=== PATIENT | male | born 1975 | race Caucasian/White ===

== ENCOUNTER 2024-07-04 16:12 | Outpatient (OUT) | payer BC, SELFPAY ==
[2024-07-04 18:27] LABS: Prostate Specific Antigen Dx 0.82 ng/mL (<=4.00)
== END 2024-07-04 16:13 | disposition home or self-care (01) ==
PROVIDERS: PCP Family Medicine; Visit Provider Urology
DX: Z12.5 Encounter for screening for malignant neoplasm of prostate (principal)
CPT/HCPCS: 36415; 84153

== ENCOUNTER 2024-08-17 20:33 | Emergency (ER) | payer BC, SELFPAY ==
[2024-08-17 20:42] VITALS: BP 184/113; PULSE 87; TEMP 36.6; O2SAT 97; BMI 27.4
--- OUTSIDE RECORDS SUMMARY | 2024-08-17 20:50 | XMS_ITS | CCD ---
Author Organization [facility] Care Team Providers Care Supervisor Pyrotechnic Loading Name Role Phone CLIFFORD CAMARGO Attending Unavailable CLIFFORD CAMARGO Consulting Unavailable CLIFFORD CAMARGO Admitting Unavailable DR COLLETTE SEE Primary Care Unavailable John Gonzalez Consulting Unavailable HARESH, DR LEMA Attending Unavailable HARESH, DR LEMA Consulting Unavailable HARESH, DR LEMA Admitting Unavailable DR COLLETTE SEE Primary Care Unavailable Collette See Unavailable COLLETTE SEE Primary Care Physician Haroon CONNORS Attending Unavailable Allergies Allergy Classification Reported Allergen(s) Allergy Type Date of Onset Reaction(s) Facility (1 source) No Known Medication Allergies; Translations: [No Known Medication Allergies] Propensity to adverse reactions (disorder) [facility] Repository Medications Current Medications Medication Drug Class(es) Dates Sig (Normalized) Sig (Original) Azithromycin (1 source) Macrolide Antimicrobial Start: 07-08-20 Azithromycin Active 0 PO .COMPLEX July 08, 2024 12:00am For 250 mg dose pack: take 500 mg today (day 1), then 250 mg for 4 days (days 2-5) PO dextromethorphan hydrobromide 15 mg / guaiFENesin 400 mg / pseudoephedrine hydrochloride 60 mg oral tablet (1 source) alpha-Adrenergic Agonist, Uncompetitive Y-zmsxtl-P-aspartate Receptor Antagonist, Sigma-1 Agonist Start: 07-08-20 take 4 tablets by mouth every twenty-four hours Fjfhxsmbebtgyem-Mj-Wx aifenesin (Capmist Dm) 60-15-400 mg tablet Active 1 TAB PO EVERY 4-6 HOURS July 08, 2024 12:00am do not exceed 4 doses per 24 hrs methylPREDNISolone 4 mg oral tablet (1 source) Corticosteroid Start: 07-08-20 take 1 tablet by mouth once Methylprednisolone (Medrol (Brian)) 4 mg tablets,dose pack Active 0 PO per package directions July 08, 2024 12:00am PO PER PKG DIR for 6 days sildenafil 50 mg oral tablet (2 sources) Phosphodiesterase 5 Inhibitor Start: 07-08-20 take 1 tablet by mouth once daily as needed Sildenafil Active 1 TAB PO Daily July 08, 2024 12:00am FreeTextSi tablet as needed Orally Once a day; Note: Source Status: Taking; Provider: Jacqueline Feliz ( ) take 1 tablet by melo th every twenty-four hours Sildenafil Citrate 50 MG 1 tablet as needed Orally Once a day Active tadalafil 20 mg oral tablet (5 sources) Phosphodiesterase 5 Inhibitor Start: 06-21-2023 tadalafil 20 mg Tab 20 mg = 1 tab(s), Oral, As Directed, PRN for erectile dysfunction, Take 30-60 minutes prior to sexual activity. Do not exceed 20mg within 24 hours., # 30 tab(s), Refills(s) 1, Pharmacy: [id number], 168, cm, 06/21/23 16:13:00 EDT, Height/Length Dosing, 78, kg, 06/21/23 16:13:00 EDT, Weight Dosing Start Date: 06/21/23 Status: Ordered Start: 03-22-2023 tadalafil 10 m g Tab Refills(s) 0 Start Date: 03/22/23 Status: Ordered Start: 01-07-2023 Cialis 10 MG 1 tablet as needed Orally prn for 30 days Jan, Active Completed/Discontinued Medications Medication Drug Class(es) Dates Sig (Normalized) Sig (Original) amoxicillin 875 mg / clavulanate 125 mg oral tablet (1 source) Penicillin-class Antibacterial Start: 11-19-2022 take 1 tablet by mouth every twelve hours Amoxicillin-Pot Clavulanate 875-125 MG 1 tablet Orally every 12 hrs for 10 day(s) Nov, Not-Taking Problems Active Problems Problem Classification Problem Date Documented Da te Episodic/Chronic Chronic obstructive pulmonary disease and bronchiectasis (2 sources) Bronchitis; Translations: [Bronchitis, not specified as acute or chronic] 07-08-2024 Episodic Other endocrine disorders (2 sources) Testicular hypofunction; Translations: [Testicular hypofunction] Onset: 03-22-2023 Chronic Other endocrine disorders (4 sources) Male hypogonadism 03-22-2023 Chronic Other lower respiratory disease (3 sources) Shortness of breath; Translations: [SHORTNESS OF BREATH] Onset: 07-06-2021 Episodic Other male genital disorders (5 sources) Male erectile dysfunction, unspecified; Translations: [Erectile dysfunction] Onset: 03-22-2023 Chronic Other male genital disorders (4 sources) Impotence 03-22-2023 Chronic Other screening for suspected conditions (not mental disorders or infectious disease) (3 sources) Encounter for screening for malignant neoplasm of prostate; Translations: [Screening for malignant neoplasm done] Onset: 03-22-2023 Episodic Pneumonia (except that caused by tuberculosis or sexually transmitted disease) (1 source) Pneumonia (except that caused by tuberculosis or sexually transmitted disease); Translations: [PNEUMONIA D/T CORONAVIRUS DIS 2019] Onset: 07-15-2021 Unclassified (2 sources) CONTACT W/AND (SUSP) EXPOS COVID-19; Translations: [CONTACT W/AND (SUSP) EXPOS COVID-19] Onset: 07-09-2021 Unclassified (4 sources) Patient encounter status 03-22-2023 Viral infection (1 source) COVID-19; Translations: [COVID-19] Onset: 07-15-2021 Past or Other Problems Problem Classification Problem Date Documented Da te Episodic/Chronic Unclassified (1 source) CONTACT W/AND (SUSP) EXPOS COVID-19; Translations: [CONTACT W/AND (SUSP) EXPOS COVID-19] Onset: 07-03-2021 Results Test Name Value Interpretation Reference Range Facility Ambulatory Visit Summaryon 1 Ambulatory Visit Summary Ambulatory Visit Summary CUATE SOLER :1975 Visit Date:07/10/2024 Ambulatory Visit Instructions Your Diagnosis Screening PSA (prostate specific antigen) ED (erectile dysfunction) Your Care Team Attending Physician - MORENITA RIZO, Haroon Ryan Primary Care Physician - ESA RIZO, COLLETTE This Is Your Medications List tadalafil (tadalafil 20 mg Tab) Procedures Performed Hip bone, Knee, Leg. Discharge Vitals Heart Rate (Peripheral) 84 Blood Pressure 166/84 Height 168 cm Height 66 in Weight 78 kg Weight 171.6 lb BMI 27.64 What to do next You Need to Schedule the Following Appointments Follow Up with MORENITA RIZO, BYRON Ji When: Comments: 2 yrs w/ PSA Where: [facility] [address], [place] [address] [phone] Medications What How Much When Instructions Unchanged tadalafil (tadalafil 20 mg Tab) 1 Tablets By Mouth As Directed as needed for for erectile dysfunction Take 30-60 minutes prior to sexual activity. Do not exceed 20mg within 24 hours. Allergies No Known Medication Allergies Problems Ongoing - Any problem that you are currently receiving treatment for. ED (erectile dysfunction) Hypogonadism male Screening PSA (prostate specific antigen) Patient Survey You may receive a survey via text or e-mail asking about your office visit. Please share your experience with us by completing your survey. We appreciate your feedback and thank you for choosing us for your care. Education Materials Prostate Cancer Screening Prostate cancer screening is testing that is done to check for the presence of prostate cancer in men. The prostate gland is a walnut-sized gland that is located below the bladder and in front of the rectum in males. The function of the prostate is to add fluid to semen during ejaculation. Prostate cancer is one of the most common types of cancer in men. Who should have prostate cancer screening? Screening recommendations vary based on age and other risk factors, as well as between the professional organizations who make the recommendations. In general, screening is recommended if: ? You are age 50 to 70 and have an average risk for prostate cancer. You should talk with your health care provider about your need for screening and how often screening should be done. Because most prostate cancers are slow growing and will not cause , screening in this age group is generally reserved for men who have a 10- to 15-year life expectancy. ? You are younger than age 50, and you have these risk factors: ? Having a father, brother, or uncle who has been diagnosed with prostate cancer. The risk is higher if your family member's cancer occurred at an early age or if you have multiple family members with prostate cancer at an early age. ? Being a male who is Black or is of [place] or sub-Saharan descent. In general, screening is not recommended if: ? You are younger than age 40. ? You are between the ages of 40 and 49 and you have no risk factors. ? You are 70 years of age or older. At this age, the risks that screening can cause are greater than the benefits that it may provide. If you are at high risk for prostate cancer, your health care provider may recommend that you have screenings more often or that you start screening at a younger age. How is screening for prostate cancer done? The recommended prostate cancer screening test is a blood test called the prostate-specific antigen (PSA) test. PSA is a protein that is made in the prostate. As you age, your prostate naturally produces more PSA. Abnormally high PSA levels may be caused by: ? Prostate cancer. ? An enlarged prostate that is not caused by cancer (benign prostatic hyperplasia, or BPH). This condition is very common in older men. ? A prostate gland infection (prostatitis) or urinary tract infection. ? Certain medicines such as male hormones (like testosterone) or other medicines that raise testosterone levels. A rectal exam may be done as part of prostate cancer screening to help provide information about the size of your prostate gland. When a rectal exam is performed, it should be done after the PSA level is drawn to avoid any effect on the results. Depending on the PSA results, you may need more tests, such as: ? A physical exam to check the size of your prostate gland, if not done as part of screening. ? Blood and imaging tests. ? A procedure to remove tissue samples from your prostate gland for testing (biopsy). This is the only way to know for certain if you have prostate cancer. What are the benefits of prostate cancer screening? ? Screening can help to identify cancer at an early stage, before symptoms start and when the cancer can be treated more easily. ? There is a small chance that screening may lower your risk of dying from prostate cancer. The chance is small navin (more content not included)... Normal [facility] Reminderson 07-10-2024 Reminders Reminders - From: Rena Sosa To: [facility] - Administrative; Sent: 07/10/2024 17:08:00 EDT Show up: 12/02/2025 17:07:00 EST Subject: 2 yr f/u Due Date/Time: 07/04/2026 17:07:00 EDT Reminder/Recall Patient needs scheduled with PRW for a 2 yr f/u with PSA Normal [facility] Urology Office/Clinic Noteon 07-10-2024 Urology Office/Clinic Note Urology Office/Clinic Note Chief Complaint 1 yr HPI Staff 49 yr old male here for 1 yr f/u w/ PSA Previous DX:ED & Hypogonadism pt is on abx for a cold/ upper resp infection, will be done with those in a few days PSA: 07/04/24- 0.82 Dysuria: no Incomplete bladder emptying: no Hematuria: no, trace IO today Frequency: q3-4 hrs Urgency: no Nocturia: not often Stream: normal Leaking: no Post void dripping: no Wearing pads/ Depends: no Urge incontinence: no Stress incontinence: no Incontinence without Sensory Awareness: no Abdominal pain: no Flank pain: no Sexual complaints: no History of Present Illness Tests reviewed: reviewed UA, PSA I have reviewed the previous health record information and history for this patient from Dr. Connors. I have reviewed and verified the staff HPI to be accurate for this encounter. Review of Systems PHQ Score Initial Depression Screen Score: 0 SCORE ROS - Provider Constitutional: denies weight loss, denies hot flashes. Eyes: denies eye problems. Gastrointestinal: denies nausea, denies vomiting. Cardiovascular: denies chest pain or angina. Integumentary: no dryness Musculoskeletal: denies musculoskeletal symptoms. ENMT: denies otolaryngeal symptoms. Respiratory: no shortness of breath. Heme/Lymph: denies easy bleeding tendency, denies easy bruising tendency. Psychiatric: no confusion, no anxiety. Genitourinary: See HPI. Physical Exam Vitals & Measurements HR: 84(Peripheral) BP: 166/84 HT: 66 in HT: 168 cm WT: 78 kg WT: 171.6 lb BMI: 27.64 General Appearance: alert, no distress, well nourished, well developed male. Prostate: normal prostate, estimated weight 30 gms, no hard nodule observed. Assessment/Plan 1. Screening PSA (prostate specific antigen) (Z12.5: Encounter for screening for malignant neoplasm of prostate) PSA 03/22/23 - 0.7 07/04/24 - 0.82 No family hx of prostate ca. МАРИЯ: ~30g, no nodules No issues with urination. UA today shows trace-intact blood. Denies gross hematuria or pain/burning with urination. PSA remains low and stable. Given low level and negative МАРИЯ, can extend PSA monitoring to 2 yrs. -F/u in 2 yrs w/ PSA 2. ED (erectile dysfunction) (N52.9: Male erectile dysfunction, unspecified) Failed Sildenafil 50 mg & 100 mg due to severe headaches. T Level 03/22/23 - 559 Taking Tadalafil 20mg prn. No concerns. Follow-up With When Contact Information MORENITA RIZO, Haroon Ryan, URL [facility] [address], [place] [address] [phone] Additional Instructions: 2 yrs w/ PSA Patient Education Prostate Cancer Screening I, Chelsea Becker, personally scribed for Dr. Connors on 07/10/2024 16:51:11. . Documentation recorded by the scribe, Chelsea Becker, accurately reflects the services(s) I performed and decisions made by me. Authenticated by Dr. Connors on 07/10/2024 16:53:32. Problem List/Past Medical History Ongoing ED (erectile dysfunction) Hypogonadism male Screening PSA (prostate specific antigen) Historical No qualifying data Procedure/Surgical History Hip bone, Knee, Leg. Medications tadalafil 20 mg Tab, 20 mg= 1 tab(s), Oral, As Directed, PRN, 1 refills Allergies No Known Medication Allergies Social History Tobacco Never (less than 100 in lifetime) Tobacco Use:. Smokeless tobacco user within last 30 days Smokeless Tobacco Use:. Oral, Household tobacco concerns: No. Yes, 07/10/2024 Family History Family history is negative Lab Results Ambulatory Point of Care Results Bilirubin Urine Dipstick: Negative (07/10/24 15:38:00) Blood Urine Dipstick: Trace-intact (07/10/24 15:38:00) Glucose Urine Dipstick: Negative (07/10/24 15:38:00) Ketones Urine Dipstick: Negative (07/10/24 15:38:00) Leukocytes Urine Dipstick: Negative (07/10/24 15:38:00) Nitrite Urine Dipstick: Negative (07/10/24 15:38:00) Protein Urine Dipstick: Negative (07/10/24 15:38:00) Specific [place] Urine Dipstick: 1.025 (07/10/24 15:38:00) Urine Appearance Urine Dipstick: Clear (07/10/24 15:38:00) Urine Color Urine Dipstick: Yellow (07/10/24 15:38:00) Urobilinogen Urine Dipstick: Normal 0.2-1 EU/dl (07/10/24 15:38:00) pH Urine Dipstick: 5.5 (07/10/24 15:38:00) Normal [facility] Comment on above: Result Comment: Elec tronically Signed By: Haroon CONNORS MD\.br\Date and Time Signed: 07/10/24 16:53 EDT\.br\Electronically Co-Signed By: Chelsea Becker\.br\Date and Time Co-Signed: 07/10/24 16:52 EDT No Panel Informationon 07-04 Prostate Specific Antigen Total 0.82 ng/mL <=4.00 [facility] CBC W MANUAL DIFFon 07-06-20 ATYPICAL LYMPH # Normal [facility] Comment on above: Performed By: #### C BCMAN #### [facility] [address] [place] [address] Dr. Octaviano Hill ATYPICAL LYMPH % Normal [facility] Comment on above: Performed By: #### C BCMAN #### [facility] [address] [place] [address] Dr. Octaviano Hill BAND # 0.0 103/ul Normal 0.0-0.3 [facility] Comment on above: Performed By: #### C BCMAN #### [facility] [address] [place] [address] Dr. Octaviano Hill BAND % 0 % Normal 0-5 [facility] Comment on above: Performed By: #### C BCMAN #### [facility] [address] [address] [address] Octaviano Hill BASOM # 0.00 103/ul Normal 0.00-0.10 [facility] Comment on above: Performed By: #### C BCMAN #### [facility] [address] [place] [address] Dr. Octaviano Hill BASOM % 0.0 % Critically low 0.2-2.0 [facility] Comment on above: Performed By: #### C BCMICHELLE #### [facility] [address] [address] [address] Octaviano Hill BLAST # Normal [facility] Comment on above: Performed By: #### C DANAY #### [facility] [address] [place] [address] Dr. Octaviano Hill BLAST % Normal [facility] Comment on above: Performed By: #### C DANAY #### [facility] [address] [place] [address] Dr. Octaviano Hill CORRECTED WBC Normal 4.0-11.0 [facility] Comment on above: Performed By: #### C DANAY #### [facility] [address] [place] [address] Dr. Octaviano Hill EOS # 0.00 103/ul Normal 0.00-0.70 [facility] Comment on above: Performed By: #### C DANAY #### [facility] [address] [place] [address] Dr. Octaviano Hill EOS% 0.0 % Critically low 0.9-7.0 [facility] Comment on above: Performed By: #### C DANAY #### [facility] [address] [place] [address] Dr. Octaviano Hill HCT 46.1 % Normal 42.0-54.0 [facility] Comment on above: Performed By: #### C DANAY #### [facility] [address] [place] [address] Dr. Octaviano Hill HGB 15.9 g/dl Normal 14.0-18.0 [facility] Comment on above: Performed By: #### C DANAY #### [facility] [address] [place] [address] Dr. Octaviano Hill LYMPHM # 0.64 103/ul Critically low 1.20-3.80 [facility] Comment on above: Performed By: #### C DANAY #### [facility] [address] [place] [address] Dr. Octaviano Hill LYMPHM% 16.0 % Critically low 20.5-60.0 [facility] Comment on above: Performed By: #### C DANAY #### [facility] [address] [place] [address] Dr. Octaviano Hill MCH 31.3 pg Normal 25.9-34.0 [facility] Comment on above: Performed By: #### C DANAY #### [facility] [address] [place] [address] Dr. Octaviano Hill MCHC 34.5 g/dl Normal 29.9-35.2 [facility] Comment on above: Performed By: #### C DANAY #### [facility] [address] [place] [address] Dr. Octaviano Hill MCV 90.7 fL Normal 80.0-94.0 [facility] Comment on above: Performed By: #### C DANAY #### [facility] [address] [place] [address] Dr. Octaviano Hill METAMYELOCYTE # Normal [facility] Comment on above: Performed By: #### C DANAY #### [facility] [address] [place] [address] Dr. Octaviano Hill METAMYELOCYTE % Normal [facility] Comment on above: Performed By: #### C DANAY #### [facility] [address] [place] [address] Dr. Octaviano Hill MONOM# 0.24 103/ul Critically low 0.30-0.80 [facility] Comment on above: Performed By: #### C DANAY #### [facility] [address] [place] [address] Dr. Octaviano Hill MONOM% 6.0 % Normal 1.7-12.0 [facility] Comment on above: Performed By: #### C DANAY #### [facility] [address] [place] [address] Dr. Octaviano Hill MPV 10.1 fL Normal 9.5-13.5 [facility] Comment on above: Performed By: #### C DANAY #### [facility] [address] [place], [place] [id number] Dr. Octaviano Hill MYELOCYTE # Normal [facility] Comment on above: Performed By: #### C DANAY #### [facility] [address] [place] [address] Dr. Octaviano Hill MYELOCYTE % Normal [facility] Comment on above: Performed By: #### C DANAY #### [facility] [address] [place] [address] Dr. Octaviano Hill NRBC Normal [facility] Comment on above: Performed By: #### C DANAY #### [facility] [address] [place] [address] Dr. Octaviano Hill PLT 157 103/ul Normal 150-450 [facility] Comment on above: Performed By: #### C DANAY #### [facility] [address] [place] [address] Dr. Octaviano Hill RBC 5.08 106/ul Normal 4.70-6.10 [facility] Comment on above: Performed By: #### C DANAY #### [facility] [address] [place] [address] Dr. Octaviano Hill RDW 12.1 % Normal 11.0-15.0 [facility] Comment on above: Performed By: #### C DANAY #### [facility] [address] [place] [address] Dr. Octaviano Hill SEG # 3.12 103/ul Normal 1.40-6.50 [facility] Comment on above: Performed By: #### C DANAY #### [facility] [address] [place] [address] Dr. Octaviano Hill SEG % 78.0 % Critically high 43.0-75.0 [facility] Comment on above: Performed By: #### C DANAY #### [facility] [address] [place] [address] Dr. Octaviano Hill WBC 4.0 103/ul Normal 4.0-11.0 [facility] Comment on above: Performed By: #### C DANAY #### [facility] [address] [place] [address] Dr. Octaviano Hill CTA CHEST WO W CONon CTA CHEST WO W CON EXAMINATION: CTA CHEST WO W CON 07/06/2021 HISTORY: SHORTNESS OF BREATH , Covid positive COMPARISON: None. TECHNIQUE: CT angiography of the pulmonary arteries following the administration of intravenous contrast. Coronal and sagittal MIP (maximum intensity projection) images were performed. Dose reduction techniques were achieved by using automated exposure control and/or adjustment of mA and/or kV according to patient size and/or use of iterative reconstruction technique. FINDINGS: No acute pulmonary embolism. Normal heart size. No CT evidence of right heart strain. No pericardial effusion. Nonaneurysmal thoracic aorta. Multifocal scattered bilateral patchy groundglass pulmonary opacities and intralobular septal thickening, greatest in the bilateral mid to lower lungs. Small incidental pulmonary cyst in the right lower lobe. No pleural effusions. The main airways are patent. No pathologically enlarged mediastinal, hilar, or axillary lymph nodes. Visualized thyroid gland is unremarkable. Upper abdomen: Unremarkable. Bones: No acute osseous abnormality. IMPRESSION: 1. No acute pulmonary embolism. 2. Multifocal bilateral patchy groundglass pulmonary opacities and associated septal thickening, most compatible with reported history of Covid 19 pneumonia. Electronically authenticated by: JOHN GONZALEZ Date: 2021-07-06 11:09 Normal [facility] CULTURE BLOODon 07-06-2021 Microscopic examination of blood, culture Culture Observations: NO GROWTH AT 5 DAYS. Normal [facility] Comment on above: Performed By: #### B LDCX2 #### [facility] [address] [address] [address] Octaviano Hill Performed By: #### B LDCX1 #### [facility] [address] [address] [address] Octaviano Hill LACTATE/LACTIC ACIDon 2020 Lactate [Moles/Vol] 1.1 mmol/L Normal 0.7-2.0 [facility] Comment on above: Performed By: #### L ACT #### [facility] [address] [place] [address] Dr. Octaviano Hill PROF 14(COMP METB)on Albumin [Mass/Vol] 3.5 g/dL Normal 3.5-5.0 [facility] Comment on above: Performed By: #### C MP, HSTROPN #### [facility] [address] [address] [address] Octaviano Hill Albumin/Globulin [Mass ratio] 1.0 {ratio} Normal [facility] Comment on above: Performed By: #### C MP, HSTROPN #### [facility] [address] [address] [address] Octaviano Hill ALP [Catalytic activity/Vol] 164 U/L Critically high 38-126 [facility] Comment on above: Performed By: #### C MP, HSTROPN #### [facility] [address] [address] [address] Octaviano Hill ALT [Catalytic activity/Vol] 86 U/L Critically high 21-72 [facility] Comment on above: Performed By: #### C MP, HSTROPN #### [facility] [address] [place] [address] Dr. Octaviano Hill Anion gap [Moles/Vol] 9.6 mmol/L Normal [facility] Comment on above: Performed By: #### C MP, HSTROPN #### [facility] [address] [place] [address] Dr. Octaviano Hill AST [Catalytic activity/Vol] 69 U/L Critically high 17-59 [facility] Comment on above: Performed By: #### C MP, HSTROPN #### [facility] [address] [address] [address] Octaviano Hill Bilirubin [Mass/Vol] 1.0 mg/dL Normal 0.2-1.3 [facility] Comment on above: Performed By: #### C MP, HSTROPN #### [facility] [address] [place] [address] Dr. Octaviano Hill Calcium [Mass/Vol] 8.3 mg/dL Critically low 8.4-10.2 Th e [facility] Comment on above: Performed By: #### C MP, HSTROPN #### [facility] [address] [place] [address] Dr. Octaviano Hill Chloride [Moles/Vol] 101 mmol/L Normal 98-107 [facility] Comment on above: Performed By: #### C JANELL, HSTROPN #### [facility] [address] [place] [address] Dr. Octaviano Hill CO2 [Moles/Vol] 29.3 mmol/L Normal 22.0-30.0 [facility] Comment on above: Performed By: #### C JANELL, HSTROPN #### [facility] [address] [place] [address] Dr. Octaviano Hill Creatinine [Mass/Vol] 1.25 mg/dL Normal 0.66-1.25 [facility] Comment on above: Performed By: #### C JANELL, HSTROPN #### [facility] [address] [place] [address] Dr. Octaviano Hill EGFR-AF NORWEGIAN >60 Normal >=60 [facility] Comment on above: Performed By: #### C JANELL, HSTROPN #### [facility] [address] [place] [address] Dr. Octaviano Hill EGFR-NON AF NORWEGIAN >60 Normal >=60 [facility] Comment on above: Performed By: #### C JANELL, HSTROPN #### [facility] [address] [place] [address] Dr. Octaviano Hill Globulin (S) [Mass/Vol] 3.6 g/dL Normal [facility] Comment on above: Performed By: #### C JANELL, HSTROPN #### [facility] [address] [place] [address] Dr. Octaviano Hill Glucose [Mass/Vol] 118 mg/dL Critically high 74-106 [facility] Comment on above: Performed By: #### C JANELL, HSTROPN #### [facility] [address] [place] [address] Dr. Octaviano Hill Potassium [Moles/Vol] 3.9 mmol/L Normal 3.4-5.0 [facility] Comment on above: Performed By: #### C JANELL, HSTROPN #### [facility] [address] [address] [address] Octaviano Hill Protein [Mass/Vol] 7.1 g/dL Normal 6.1-8.2 [facility] Comment on above: Performed By: #### C MP, HSTROPN #### [facility] [address] [place] [address] Dr. Octaviano Hill Sodium [Moles/Vol] 136 mmol/L Critically low 137-145 Th [facility] Comment on above: Performed By: #### C MP, HSTROPN #### [facility] [address] [place] [address] Dr. Octaviano Hill Urea nitrogen [Mass/Vol] 15.0 mg/dL Normal 9.0-20.0 [facility] Comment on above: Performed By: #### C MP, HSTROPN #### [facility] [address] [place] [address] Dr. Octaviano Hill Urea nitrogen/Creatinin e [Mass ratio] 12.0 mg/mg Normal [facility] Comment on above: Performed By: #### C MP, HSTROPN #### [facility] [address] [place] [address] Dr. Octaviano Hill TROPONIN, HIGH SENSITIVITYon 07-06-2021 HSTROP 10.5 pg/mL Normal 4.0-42.2 [facility] Comment on above: Result Comment: CUT- OFF POINTS HAVE BEEN ESTABLISHED BASED ON THE FOURTH UNIVERSAL DEFINITIONS OF MYOCARDIAL INFARCTION. THE UPPER REFERENCE LIMIT (URL) OF TROPONIN, DEFINED THE 99TH PERCENTILE OF cTnI DISTRIBUTION IN A REFERENCE POPULATION, HAS BEEN CONFIRMED THE DECISION THRESHOLD FOR ME DIAGNOSIS. Performed By: #### C MP, HSTROPN #### [facility] [address] [place] [address] Dr. Octaviano Hill Covid-19 PCR (CVDTB)on 06-06 SARS-CoV-2 (COVID-19) RNA MERYL+probe Ql (Unsp spec) Detected Critically abnormal NOT DETECTED [facility] Comment on above: Result Comment: This test is not yet approved or cleared by the [place] FDA. When there are no FDA-approved or cleared tests available, and other criteria are met, FDA can make tests available under an emergency access mechanism called an Emergency Use Authorization (EUA). The EUA for this test is supported by the [place] of Health and Human Service's (HHS's) declaration that circumstances exist to justify the emergency use of in vitro diagnostics for the detection and/or diagnosis of the virus that causes COVID-19. This EUA will remain in effect (meaning this test can be used) for the duration of the COVID-19 declaration justifying emergency of IVDs, unless it is terminated or revoked by FDA (after which the test may no longer be used). Performed By: #### C [facility] #### [facility] [address] [place] [address] Dr. Octaviano Hill Vital Signs Date Time Vital Sign Value Performing Clinician Facility 07-10-2024 15:33-0400 Blood Pressure Location Haroon CONNORS [facility] 07-10-2024 15:33-0400 Diastolic blood pressure 84 mm[Hg] Haroon CONNORS [facility] 07-10-2024 15:33-0400 Heart rate 84 /min Haroon CONNORS [facility] 07-10-2024 15:33-0400 Systolic blood pressure 166 mm[Hg] Haroon CONNORS [facility] 07-08-2024 09:110400 Body height 167.64 cm [facility] 07-08-2024 09:110400 Body mass index (BMI) [Ratio] 27.4 kg/m2 [facility] 07-08-2024 09:110400 Body temperature 98 [degF] [facility] 07-08-2024 09:110400 Body weight 77.11 kg [facility] 07-08-2024 09:110400 Diastolic blood pressure 95 mm[Hg] [facility] 07-08-2024 09:11-0400 Heart rate 83 /min [facility] 07-08-2024 09:11-0400 Respiratory rate 18 /min [facility] 07-08-2024 09:11-0400 SaO2% (BldA) [Mass fraction] 97 % [facility] 07-08-2024 09:11-0400 Systolic blood pressure 142 mm[Hg] [facility] 06-21-2023 16:18-0400 Diastolic blood pressure 108 mm[Hg] Haroon CONNORS [facility] 06-21-2023 16:18-0400 Mean blood pressure 122 mm[Hg] Haroonradha CONNORS [facility] 06-21-2023 16:18-0400 Systolic blood pressure 150 mm[Hg] Haroon CONNORS [facility] 06-21-2023 16:11-0400 Blood Pressure Location Haroonradha CONNORS [facility] 06-21-2023 16:11-0400 Diastolic blood pressure 101 mm[Hg] Haroonradha CONNORS [facility] 06-21-2023 16:11-0400 Heart rate 80 /min Haroonradha CNONORS [facility] 06-21-2023 16:11-0400 Respiratory rate 16 /min Haroonradha CONNORS [facility] 06-21-2023 16:11-0400 Systolic blood pressure 140 mm[Hg] Haroon CONNORS [facility] 03-22-2023 14:37-0400 Blood Pressure Location Haroonradha CONNORS [facility] 03-22-2023 14:37-0400 Diastolic blood pressure 68 mm[Hg] Haroon CONNORS [facility] 03-22-2023 14:37-0400 Heart rate 68 /min Haroon CONNORS [facility] 03-22-2023 14:37-0400 Systolic blood pressure 127 mm[Hg] Haroon CONNORS [facility] 01-07-2023 16:45-0400 Body height 167.64 cm Collette See Other [employer] Other 01-07-2023 16:45-0400 Body mass index (BMI) [Ratio] 29.21 kg/m2 [facility] Other [facility] Other 01-07-2023 16:45-0400 Body weight 82.1 kg Collette See Other [facility] [employer] Other 01-07-2023 16:45-0400 Diastolic blood pressure 80 mm[Hg] Collette See Other [employer] Other 01-07-2023 16:45-0400 SaO2% (BldA) [Mass fraction] 96 % Collette See Other [employer] Other 01-07-2023 16:45-0400 Systolic blood pressure 132 mm[Hg] Collette See Other [employer] Other Encounters Encounter Date Encounter Type Care Provider Facility Start: 07-10-2024 End: 07-10-2024 ambulatory Haroon CONNORS Facility:[facility] Start: 07-10-2024 End: 07-10-2024 Patient encounter procedure Haroon CONNORS [facility] Start: 07-08-2024 End: 07-08-2024 ambulatory [facility] Work Phone: Start: 07-08-2024 End: 07-08-2024 [facility] Work Phone: Start: 07-04-2024 [facility] Work Phone: Start: 06-21-2023 End: 06-21-2023 Patient encounter procedure Haroon CONNORS [facility] Start: 03-22-2023 End: 03-22-2023 Lab Drop off Haroon CONNORS [facility] Start: 03-22-2023 End: 03-22-2023 Patient encounter procedure Haroon CONNORS [facility] Start: 01-18-2023 End: 01-18-2023 Off-Site Haroon CONNORS [facility] Start: 01-07-2023 End: 01-07-2023 ambulatory Collette See Other [facility] Other Start: 01-07-2023 Office outpatient visit 15 minutes Collette See [facility] Start: 07-06-2021 End: 07-06-2021 ambulatory CLIFFORD CAMARGO Facility:[facility] Start: 07-03-2021 End: 07-03-[address] TOREY HUTSON Facility:[facility] Procedures Date Procedure Procedure Detail Performing Clinician Innominate bone stru cture (body structure) Haroon CONNORS Knee region structur e (body structure) Haroon CONNORS Lower limb structure (body structure) Haroon CONNORS Payers Date Payer Category Payer Unknown [id number] 1975 Unknown [id number] 1975 Unknown [id number] 1975 Unknown [id number] 1959 Unknown [id number] Social History Date Type Detail Facility Unknown if ever smoked [employer] Other Sex Assigned At [facility] Start: 03-22-2023 End: 07-10-2024 Tobacco smoking status Never smoked tobacco (finding) [facility] Tobacco smoking status Never [facility] Start: 1975 Sex Assigned At Male F [facility] Functional Status Date Assessment Result Facility 07-10-2024 Functional Status N/A [facility] 06-21-2023 Functional Status N/A [facility] 03-22-2023 Functional Status N/A [facility] Clinical Notes 01-07-2023 to 07-10-2024 Note Date & Type Note Facility 07-10-2024 Hospital Discharge instructions Patient Education 07/10/2024 16:47:22 Prostate Cancer Screening Prostate Cancer Screening Prostate cancer screening is testing that is done to check for the presence of prostate cancer in men. The prostate gland is a walnut-sized gland that is located below the bladder and in front of the rectum in males. The function of the prostate is to add fluid to semen during ejaculation. Prostate cancer is one of the most common types of cancer in men. Who should have prostate cancer screening? Screening recommendations vary based on age and other risk factors, as well as between the professional organizations who make the recommendations. In general, screening is recommended if: You are age 50 to 70 and have an average risk for prostate cancer. You should talk with your health care provider about your need for screening and how often screening should be done. Because most prostate cancers are slow growing and will not cause , screening in this age group is generally reserved for men who have a 10- to 15-year life expectancy. You are younger than age 50, and you have these risk factors: ?Having a father, brother, or uncle who has been diagnosed with prostate cancer. The risk is higher if your family member's cancer occurred at an early age or if you have multiple family members with prostate cancer at an early age. ?Being a male who is Black or is of [place] or sub-Saharan descent. In general, screening is not recommended if: You are younger than age 40. You are between the ages of 40 and 49 and you have no risk factors. You are 70 years of age or older. At this age, the risks that screening can cause are greater than the benefits that it may provide. If you are at high risk for prostate cancer, your health care provider may recommend that you have screenings more often or that you start screening at a younger age. How is screening for prostate cancer done? The recommended prostate cancer screening test is a blood test called the prostate-specific antigen (PSA) test. PSA is a protein that is made in the prostate. As you age, your prostate naturally produces more PSA. Abnormally high PSA levels may be caused by: Prostate cancer. An enlarged prostate that is not caused by cancer (benign prostatic hyperplasia, or BPH). This condition is very common in older men. A prostate gland infection (prostatitis) or urinary tract infection. Certain medicines such as male hormones (like testosterone) or other medicines that raise testosterone levels. A rectal exam may be done as part of prostate cancer screening to help provide information about the size of your prostate gland. When a rectal exam is performed, it should be done after the PSA level is drawn to avoid any effect on the results. Depending on the PSA results, you may need more tests, such as: A physical exam to check the size of your prostate gland, if not done as part of screening. Blood and imaging tests. A procedure to remove tissue samples from your prostate gland for testing (biopsy). This is the only way to know for certain if you have prostate cancer. What are the benefits of prostate cancer screening? Screening can help to identify cancer at an early stage, before symptoms start and when the cancer can be treated more easily. There is a small chance that screening may lower your risk of dying from prostate cancer. The chance is small because prostate cancer is a slow-growing cancer, and most men with prostate cancer from a different cause. What are the risks of prostate cancer screening? The main risk of prostate cancer screening is diagnosing and treating prostate cancer that would never have caused any symptoms or problems. This is called overdiagnosisand overtreatment. PSA screening cannot tell you if your PSA is high due to cancer or a different cause. A prostate biopsy is the only procedure to diagnose prostate cancer. Even the results of a biopsy may not tell you if your cancer needs to be treated. Slow-growing prostate cancer may not need any treatment other than monitoring, so diagnosing and treating it may cause unnecessary stress or other side effects. Questions to ask your health care provider When should I start prostate cancer screening? What is my risk for prostate cancer? How often do I need screening? What type of screening tests do I need? How do I get my test results? What do my results mean? Do I need treatment? Where to find more information The [employer]: www.cancer.org [employer]: www.auanet.org Contact a health care provider if: You have difficulty urinating. You have pain when you urinate or ejaculate. You have blood in your urine or semen. You have pain in your back or in the area of your prostate. Summary Prostate cancer is a common type of cancer in men. The prostate gland is located below the bladder and in front of the rectum. This gland adds fluid to semen during ejaculation. Prostate cancer screening may identify cancer at an early stage, when the cancer can be treated more easily and is less likely to have spread to other areas of the body. The prostate-specific antigen (PSA) test is the recommended screening test for prostate cancer, but it has associated risks. Discuss the risks and benefits of prostate cancer screening with your health care provider. If you are age 70 or older, the risks that screening can cause are greater than the benefits that it may provide. This information is not intended to replace advice given to you by your health care provider. Make sure you discuss any questions you have with your health care provider. Document Revised: 03/16/2022 Document Reviewed: 03/16/2022 [employer] Patient Education 2023 [employer]. Follow Up Care 06/21/2023 17:09:25 With:MORENITA RIZO, Haroon Ryan, URL Address: [facility] [address], [place] [address] [phone] When: Unknown Comments:1 yrs w/ PSA [facility] 07-10-2024 Note Patient Education Oncology Prostate Cancer Screening Prostate cancer screening is testing that is done to check for the presence of prostate cancer in men. The prostate gland is a walnut-sized gland that is located below the bladder and in front of the rectum in males. The function of the prostate is to add fluid to semen during ejaculation. Prostate cancer is one of the most common types of cancer in men. Who should have prostate cancer screening? Screening recommendations vary based on age and other risk factors, as well as between the professional organizations who make the recommendations. In general, screening is recommended if: ? You are age 50 to 70 and have an average risk for prostate cancer. You should talk with your health care provider about your need for screening and how often screening should be done. Because most prostate cancers are slow growing and will not cause , screening in this age group is generally reserved for men who have a 10- to 15-year life expectancy. ? You are younger than age 50, and you have these risk factors: ? Having a father, brother, or uncle who has been diagnosed with prostate cancer. The risk is higher if your family member's cancer occurred at an early age or if you have multiple family members with prostate cancer at an early age. ? Being a male who is Black or is of [place] or sub-Saharan descent. In general, screening is not recommended if: ? You are younger than age 40. ? You are between the ages of 40 and 49 and you have no risk factors. ? You are 70 years of age or older. At this age, the risks that screening can cause are greater than the benefits that it may provide. If you are at high risk for prostate cancer, your health care provider may recommend that you have screenings more often or that you start screening at a younger age. How is screening for prostate cancer done? The recommended prostate cancer screening test is a blood test called the prostate-specific antigen (PSA) test. PSA is a protein that is made in the prostate. As you age, your prostate naturally produces more PSA. Abnormally high PSA levels may be caused by: ? Prostate cancer. ? An enlarged prostate that is not caused by cancer (benign prostatic hyperplasia, or BPH). This condition is very common in older men. ? A prostate gland infection (prostatitis) or urinary tract infection. ? Certain medicines such as male hormones (like testosterone) or other medicines that raise testosterone levels. A rectal exam may be done as part of prostate cancer screening to help provide information about the size of your prostate gland. When a rectal exam is performed, it should be done after the PSA level is drawn to avoid any effect on the results. Depending on the PSA results, you may need more tests, such as: ? A physical exam to check the size of your prostate gland, if not done as part of screening. ? Blood and imaging tests. ? A procedure to remove tissue samples from your prostate gland for testing (biopsy). This is the only way to know for certain if you have prostate cancer. What are the benefits of prostate cancer screening? ? Screening can help to identify cancer at an early stage, before symptoms start and when the cancer can be treated more easily. ? There is a small chance that screening may lower your risk of dying from prostate cancer. The chance is small because prostate cancer is a slow-growing cancer, and most men with prostate cancer from a different cause. What are the risks of prostate cancer screening? The main risk of prostate cancer screening is diagnosing and treating prostate cancer that would never have caused any symptoms or problems. This is called overdiagnosisand overtreatment. PSA screening cannot tell you if your PSA is high due to cancer or a different cause. A prostate biopsy is the only procedure to diagnose prostate cancer. Even the results of a biopsy may not tell you if your cancer needs to be treated. Slow-growing prostate cancer may not need any treatment other than monitoring, so diagnosing and treating it may cause unnecessary stress or other side effects. Questions to ask your health care provider ? When should I start prostate cancer screening? ? What is my risk for prostate cancer? ? How often do I need screening? ? What type of screening tests do I need? ? How do I get my test results? ? What do my results mean? ? Do I need treatment? Where to find more information ? The [employer] Cancer Society: www.cancer.org ? [employer]: www.auanet.org Contact a health care provider if: ? You have difficulty urinating. ? You have pain when you urinate or ejaculate. ? You have blood in your urine or semen. ? You have pain in your back or in the area of your prostate. Summary ? Prostate cancer is a common type of cancer in men. The prostate gland is located below the bladder and in front of the rectum. (more content not included)... [facility] 07-10-2024 Evaluation + Plan note Diagnostic Tests PendingPSA Screen, Total 07/10/24 [facility] 06-21-2023 Hospital Discharge instructions Patient Education 06/21/2023 17:01:15 Erectile Dysfunction Erectile Dysfunction Erectile dysfunction (ED) is the inability to get or keep an erection in order to have sexual intercourse. ED is considered a symptom of an underlying disorder and is not considered a disease. ED may include: Inability to get an erection. Lack of enough hardness of the erection to allow penetration. Loss of erection before sex is finished. What are the causes? This condition may be caused by: Physical causes, such as: ?Artery problems. This may include heart disease, high blood pressure, atherosclerosis, and diabetes. ?Hormonal problems, such as low testosterone. ?Obesity. ?Nerve problems. This may include back or pelvic injuries, multiple sclerosis, Parkinson's disease, spinal cord injury, and stroke. Certain medicines, such as: ?Pain relievers. ?Antidepressants. ?Blood pressure medicines and water pills (diuretics). ?Cancer medicines. ?Antihistamines. ?Muscle relaxants. Lifestyle factors, such as: ?Use of drugs such as marijuana, cocaine, or opioids. ?Excessive use of alcohol. ?Smoking. ?Lack of physical activity or exercise. Psychological causes, such as: ?Anxiety or stress. ?Sadness or depression. ?Exhaustion. ?Fear about sexual performance. ?Guilt. What are the signs or symptoms? Symptoms of this condition include: Inability to get an erection. Lack of enough hardness of the erection to allow penetration. Loss of the erection before sex is finished. Sometimes having normal erections, but with frequent unsatisfactory episodes. Low sexual satisfaction in either partner due to erection problems. A curved penis occurring with erection. The curve may cause pain, or the penis may be too curved to allow for intercourse. Never having nighttime or morning erections. How is this diagnosed? This condition is often diagnosed by: Performing a physical exam to find other diseases or specific problems with the penis. Asking you detailed questions about the problem. Doing tests, such as: ?Blood tests to check for diabetes mellitus or high cholesterol, or to measure hormone levels. ?Other tests to check for underlying health conditions. ?An ultrasound exam to check for scarring. ?A test to check blood flow to the penis. Doing a sleep study at home to measure nighttime erections. How is this treated? This condition may be treated by: Medicines, such as: ?Medicine taken by mouth to help you achieve an erection (oral medicine). ?Hormone replacement therapy to replace low testosterone levels. ?Medicine that is injected into the penis. Your health care provider may instruct you how to give yourself these injections at home. ?Medicine that is delivered with a short applicator tube. The tube is inserted into the opening at the tip of the penis, which is the opening of the urethra. A tiny pellet of medicine is put in the urethra. The pellet dissolves and enhances erectile function. This is also called MUSE (medicated urethral system for erections) therapy. Vacuum pump. This is a pump with a ring on it. The pump and ring are placed on the penis and used to create pressure that helps the penis become erect. Penile implant surgery. In this procedure, you may receive: ?An inflatable implant. This consists of cylinders, a pump, and a reservoir. The cylinders can be inflated with a fluid that helps to create an erection, and they can be deflated after intercourse. ?A semi-rigid implant. This consists of two silicone rubber rods. The rods provide some rigidity. They are also flexible, so the penis can both curve downward in its normal position and become straight for sexual intercourse. Blood vessel surgery to improve blood flow to the penis. During this procedure, a blood vessel from a different part of the body is placed into the penis to allow blood to flow around (bypass) damaged or blocked blood vessels. Lifestyle changes, such as exercising more, losing weight, and quitting smoking. Follow these instructions at home: Medicines Take [id number] and prescription medicines only as told by your health care provider. Do not increase the dosage without first discussing it with your health care provider. If you are using self-injections, do injections as directed by your health care provider. Make sure you avoid any veins that are on the surface of the penis. After giving an injection, apply pressure to the injection site for 5 minutes. Talk to your health care provider about how to prevent headaches while taking ED medicines. These medicines may cause a sudden headache due to the increase in blood flow in your body. General instructions Exercise regularly, as directed by your health care provider. Work with your health care provider to lose weight, if needed. Do not use any products that contain nicotine or tobacco. These products include cigarettes, chewing tobacco, and vaping devices, such as e-cigarettes. If you need help quitting, ask your health care provider. Before using a vacuum pump, read the instructions that come with the pump and discuss any questions with your health care provider. Keep all follow-up visits. This is important. Contact a health care provider if: You feel nauseous. You are vomiting. You get sudden headaches while taking ED medicines. You have any concerns about your sexual health. Get help right away if: You are taking oral or injectable medicines and you have an erection that lasts longer than 4 hours. If your health care provider is unavailable, go to the nearest emergency room for evaluation. An erection that lasts much longer than 4 hours can result in permanent damage to your penis. You have severe pain in your groin or abdomen. You develop redness or severe swelling of your penis. You have redness spreading at your groin or lower abdomen. You are unable to urinate. You experience chest pain or a rapid heartbeat (palpitations) after taking oral medicines. These symptoms may represent a serious problem that is an emergency. Do not wait to see if the symptoms will go away. Get medical help right away. Call your local emergency services (911 in the [place] Do not drive yourself to the hospital. Summary Erectile dysfunction (ED) is the inability to get or keep an erection during sexual intercourse. This condition is diagnosed based on a physical exam, your symptoms, and tests to determine the cause. Treatment varies depending on the cause and may include medicines, hormone therapy, surgery, or a vacuum pump. You may need follow-up visits to make sure that you are using your medicines or devices correctly. Get help right away if you are taking or injecting medicines and you have an erection that lasts longer than 4 hours. This information is not intended to replace advice given to you by your health care provider. Make sure you discuss any questions you have with your health care provider. Document Revised: 12/17/2021 Document Reviewed: 12/17/2021 [employer] Patient Education 2022 [employer]. Follow Up Care 03/22/2023 15:53:38 With:MORENITA RIZO, Haroon Ryan, URL Address: [facility] [address], [place] [address]- [phone] When:Within 1 Year(s) Comments:w/PSA [facility] 03-22-2023 Hospital Discharge instructions Patient Education 03/22/2023 15:40:27 Prostate Cancer Screening Prostate Cancer Screening Prostate cancer screening is testing that is done to check for the presence of prostate cancer in men. The prostate gland is a walnut-sized gland that is located below the bladder and in front of the rectum in males. The function of the prostate is to add fluid to semen during ejaculation. Prostate cancer is one of the most common types of cancer in men. Who should have prostate cancer screening? Screening recommendations vary based on age and other risk factors, as well as between the professional organizations who make the recommendations. In general, screening is recommended if: You are age 50 to 70 and have an average risk for prostate cancer. You should talk with your health care provider about your need for screening and how often screening should be done. Because most prostate cancers are slow growing and will not cause , screening in this age group is generally reserved for men who have a 10- to 15-year life expectancy. You are younger than age 50, and you have these risk factors: ?Having a father, brother, or uncle who has been diagnosed with prostate cancer. The risk is higher if your family member's cancer occurred at an early age or if you have multiple family members with prostate cancer at an early age. ?Being a male who is Black or is of [place] or sub-Saharan descent. In general, screening is not recommended if: You are younger than age 40. You are between the ages of 40 and 49 and you have no risk factors. You are 70 years of age or older. At this age, the risks that screening can cause are greater than the benefits that it may provide. If you are at high risk for prostate cancer, your health care provider may recommend that you have screenings more often or that you start screening at a younger age. How is screening for prostate cancer done? The recommended prostate cancer screening test is a blood test called the prostate-specific antigen (PSA) test. PSA is a protein that is made in the prostate. As you age, your prostate naturally produces more PSA. Abnormally high PSA levels may be caused by: Prostate cancer. An enlarged prostate that is not caused by cancer (benign prostatic hyperplasia, or BPH). This condition is very common in older men. A prostate gland infection (prostatitis) or urinary tract infection. Certain medicines such as male hormones (like testosterone) or other medicines that raise testosterone levels. A rectal exam may be done as part of prostate cancer screening to help provide information about the size of your prostate gland. When a rectal exam is performed, it should be done after the PSA level is drawn to avoid any effect on the results. Depending on the PSA results, you may need more tests, such as: A physical exam to check the size of your prostate gland, if not done as part of screening. Blood and imaging tests. A procedure to remove tissue samples from your prostate gland for testing (biopsy). This is the only way to know for certain if you have prostate cancer. What are the benefits of prostate cancer screening? Screening can help to identify cancer at an early stage, before symptoms start and when the cancer can be treated more easily. There is a small chance that screening may lower your risk of dying from prostate cancer. The chance is small because prostate cancer is a slow-growing cancer, and most men with prostate cancer from a different cause. What are the risks of prostate cancer screening? The main risk of prostate cancer screening is diagnosing and treating prostate cancer that would never have caused any symptoms or problems. This is called overdiagnosisand overtreatment. PSA screening cannot tell you if your PSA is high due to cancer or a different cause. A prostate biopsy is the only procedure to diagnose prostate cancer. Even the results of a biopsy may not tell you if your cancer needs to be treated. Slow-growing prostate cancer may not need any treatment other than monitoring, so diagnosing and treating it may cause unnecessary stress or other side effects. Questions to ask your health care provider When should I start prostate cancer screening? What is my risk for prostate cancer? How often do I need screening? What type of screening tests do I need? How do I get my test results? What do my results mean? Do I need treatment? Where to find more information The [employer]: www.cancer.org [employer]: www.auanet.org Contact a health care provider if: You have difficulty urinating. You have pain when you urinate or ejaculate. You have blood in your urine or semen. You have pain in your back or in the area of your prostate. Summary Prostate cancer is a common type of cancer in men. The prostate gland is located below the bladder and in front of the rectum. This gland adds fluid to semen during ejaculation. Prostate cancer screening may identify cancer at an early stage, when the cancer can be treated more easily and is less likely to have spread to other areas of the body. The prostate-specific antigen (PSA) test is the recommended screening test for prostate cancer, but it has associated risks. Discuss the risks and benefits of prostate cancer screening with your health care provider. If you are age 70 or older, the risks that screening can cause are greater than the benefits that it may provide. This information is not intended to replace advice given to you by your health care provider. Make sure you discuss any questions you have with your health care provider. Document Revised: 03/16/2022 Document Reviewed: 03/16/2022 [employer] Patient Education 2022 [employer]. 03/22/2023 08:48:49 Erectile Dysfunction Erectile Dysfunction Erectile dysfunction (ED) is the inability to get or keep an erection in order to have sexual intercourse. ED is considered a symptom of an underlying disorder and is not considered a disease. ED may include: Inability to get an erection. Lack of enough hardness of the erection to allow penetration. Loss of erection before sex is finished. What are the causes? This condition may be caused by: Physical causes, such as: ?Artery problems. This may include heart disease, high blood pressure, atherosclerosis, and diabetes. ?Hormonal problems, such as low testosterone. ?Obesity. ?Nerve problems. This may include back or pelvic injuries, multiple sclerosis, Parkinson's disease, spinal cord injury, and stroke. Certain medicines, such as: ?Pain relievers. ?Antidepressants. ?Blood pressure medicines and water pills (diuretics). ?Cancer medicines. ?Antihistamines. ?Muscle relaxants. Lifestyle factors, such as: ?Use of drugs such as marijuana, cocaine, or opioids. ?Excessive use of alcohol. ?Smoking. ?Lack of physical activity or exercise. Psychological causes, such as: ?Anxiety or stress. ?Sadness or depression. ?Exhaustion. ?Fear about sexual performance. ?Guilt. What are the signs or symptoms? Symptoms of this condition include: Inability to get an erection. Lack of enough hardness of the erection to allow penetration. Loss of the erection before sex is finished. Sometimes having normal erections, but with frequent unsatisfactory episodes. Low sexual satisfaction in either partner due to erection problems. A curved penis occurring with erection. The curve may cause pain, or the penis may be too curved to allow for intercourse. Never having nighttime or morning erections. How is this diagnosed? This condition is often diagnosed by: Performing a physical exam to find other diseases or specific problems with the penis. Asking you detailed questions about the problem. Doing tests, such as: ?Blood tests to check for diabetes mellitus or high cholesterol, or to measure hormone levels. ?Other tests to check for underlying health conditions. ?An ultrasound exam to check for scarring. ?A test to check blood flow to the penis. Doing a sleep study at home to measure nighttime erections. How is this treated? This condition may be treated by: Medicines, such as: ?Medicine taken by mouth to help you achieve an erection (oral medicine). ?Hormone replacement therapy to replace low testosterone levels. ?Medicine that is injected into the penis. Your health care provider may instruct you how to give yourself these injections at home. ?Medicine that is delivered with a short applicator tube. The tube is inserted into the opening at the tip of the penis, which is the opening of the urethra. A tiny pellet of medicine is put in the urethra. The pellet dissolves and enhances erectile function. This is also called MUSE (medicated urethral system for erections) therapy. Vacuum pump. This is a pump with a ring on it. The pump and ring are placed on the penis and used to create pressure that helps the penis become erect. Penile implant surgery. In this procedure, you may receive: ?An inflatable implant. This consists of cylinders, a pump, and a reservoir. The cylinders can be inflated with a fluid that helps to create an erection, and they can be deflated after intercourse. ?A semi-rigid implant. This consists of two silicone rubber rods. The rods provide some rigidity. They are also flexible, so the penis can both curve downward in its normal position and become straight for sexual intercourse. Blood vessel surgery to improve blood flow to the penis. During this procedure, a blood vessel from a different part of the body is placed into the penis to allow blood to flow around (bypass) damaged or blocked blood vessels. Lifestyle changes, such as exercising more, losing weight, and quitting smoking. Follow these instructions at home: Medicines Take tucn-[id number]-[id number] and prescription medicines only as told by your health care provider. Do not increase the dosage without first discussing it with your health care provider. If you are using self-injections, do injections as directed by your health care provider. Make sure you avoid any veins that are on the surface of the penis. After giving an injection, apply pressure to the injection site for 5 minutes. Talk to your health care provider about how to prevent headaches while taking ED medicines. These medicines may cause a sudden headache due to the increase in blood flow in your body. General instructions Exercise regularly, as directed by your health care provider. Work with your health care provider to lose weight, if needed. Do not use any products that contain nicotine or tobacco. These products include cigarettes, chewing tobacco, and vaping devices, such as e-cigarettes. If you need help quitting, ask your health care provider. Before using a vacuum pump, read the instructions that come with the pump and discuss any questions with your health care provider. Keep all follow-up visits. This is important. Contact a health care provider if: You feel nauseous. You are vomiting. You get sudden headaches while taking ED medicines. You have any concerns about your sexual health. Get help right away if: You are taking oral or injectable medicines and you have an erection that lasts longer than 4 hours. If your health care provider is unavailable, go to the nearest emergency room for evaluation. An erection that lasts much longer than 4 hours can result in permanent damage to your penis. You have severe pain in your groin or abdomen. You develop redness or severe swelling of your penis. You have redness spreading at your groin or lower abdomen. You are unable to urinate. You experience chest pain or a rapid heartbeat (palpitations) after taking oral medicines. These symptoms may represent a serious problem that is an emergency. Do not wait to see if the symptoms will go away. Get medical help right away. Call your local emergency services (911 in the [place] Do not drive yourself to the hospital. Summary Erectile dysfunction (ED) is the inability to get or keep an erection during sexual intercourse. This condition is diagnosed based on a physical exam, your symptoms, and tests to determine the cause. Treatment varies depending on the cause and may include medicines, hormone therapy, surgery, or a vacuum pump. You may need follow-up visits to make sure that you are using your medicines or devices correctly. Get help right away if you are taking or injecting medicines and you have an erection that lasts longer than 4 hours. This information is not intended to replace advice given to you by your health care provider. Make sure you discuss any questions you have with your health care provider. Document Revised: 12/17/2021 Document Reviewed: 12/17/2021 [employer] Patient Education 2022 [employer]. Follow Up Care 01/18/2023 13:13:58 With:Haroon CONNORS MD, URL Address: [facility] [address], [place] [address]- When: Unknown [facility] 01-07-2023 Evaluation note Encounter Date Diagnosis Assessment Notes Jan, Erectile disorder (ICD-10 - N52.9) Discussed changing med. Has history of chronic L hip issue. Discussed possible nerve related issue contributing to the ED. Agrees to Urology consultation. [employer] Other Evaluation + Plan note Future Appointments Appointment Date:03/22/2023 02:00:00 PM Scheduled Provider:Haroon CONNORS MD Location:[facility] Appointment Type:URO New Patient [facility] Evaluation + Plan note Future Appointments Appointment Date:06/21/2023 03:30:00 PM Scheduled Provider:Haroon CONNORS MD Location:[facility] Appointment Type:URO Office Visit [facility] evaluation + Plan note Future Appointments Appointment Date:06/21/2023 03:30:00 PM Scheduled Provider:Haroon CONNORS MD Location:[facility] Appointment Type:URO Office Visit Diagnostic Tests Pending * PSA Total 03/22/23 * [facility]ments Appointment Date:06/26/2024 03:30:00 PM Scheduled Provider:Haroon CONNORS MD Location:[facility] Appointment Type:URO Office Visit Diagnostic Tests Pending * PSA Total 06/21/23 [facility] evaluation note* Diagnosis Onset Date Resolution Status Bronchitis [facility] Work Phone: Hospital course Narrative No data available for this section [facility] Hospital Discharge instructions No data available for this section [facility] Progress note No data available for this section [facility] Summary Purpose Family History Relationship Condition Age at Onset Recorded Date/T german father Hypertension Unknown Heart disease Unknown Advance Directives Advance Directive Response Recorded Date/ Time Advance Directives No July 08, 2024 9:03am Reason for Referral Reason * 01/18 [place] or [place] location - years of ED symptoms, history of L hip issue, questions if nerve related issue. Tried med without acceptable result. thank you Diagnosis 1 Erectile disorder (N 52.9) Referral Organization [facility] Referring Provider First Name Collette Referring Provider Last Name Esa Referring Provider Specialty Family [facility] Referred Organization [facility] Referred Provider Silvestre Garza Referred Address [address] [place],[address] Referred Provider Specialty Urology Referral Priority Routine General Notes Sherley Garcia 11:50:14 AM >received today, waiting for notes to be locked to fax Sherley Garcia 01/12/2023 11:23:18 AM >Mary Jo, can you have Dr. Collette See lock her 01/07 notes, so I can faxed referral. Then send this back to me. Thank You :) Rosamaria Robison 01/12/2023 01:05:08 PM > Notes have been locked. Sherley Garcia 01/12/2023 01:06:03 PM >notes locked and referral faxed Chief Complaint and Reason for Visit Chief Complaint Chest congestion, co ugh Reason for Visit Bronchitis Additional Source Comments (unrecognized sect ion and content) No Status Records FoundNo Status Records Found INFORMATION SOURCE (unrecogn ized section and content) DATE CREATED AUTHOR 07/16/2021 [facility] [place] [facility] DATE CREATED AUTHOR AUTHOR'S ORGANIZ ATION 07/12/2024 [facility] REASON FOR VISIT (unrecogniz ed section and content) Erectile Disfunction Patient Care team informatio n (unrecognized section and content) Team Status: Active Member Role Status Dates Collette See MD Primary Care Provider Active Team Status: Active Member Role Status Dates Collette See MD Primary Care Provider Active Start: July 04, 2024 Haroon Connors MD Attending Provider Active St art: July 04, 2024 Team Status: Inactive Member Role Status Dates Collette See MD Primary Care Provider Active Start: July 08, 2024 End: July 08, 2024 Rachele Vogel APRN Attending Provider Active Start: July 08, 2024 End: July 08, 2024 Personnel Name: COLLETTE SEE MD Address: Address: [address] [place] [address] Goals (unrecognized section and content) Goals may be documented in a n alternate section FOR RECORDS PERTAINING TO PATIENTS WHO ARE OR HAVE BEEN ENROLLED IN A CHEMICAL DEPENDENCY/SUBSTANCEABUSE PROGRAM, SOME INFORMATION MAY BE OMITTED. This clinical summary was aggregated from multiple sources. Caution should be exercised in using it in the provision of clinical care. This summary normalizes information from multiple sources, and as a consequence, information in this document may materially change the coding, format and clinical context of patient data. In addition, data may be omitted in some cases. CLINICAL DECISIONS SHOULD BE BASED ON THE PRIMARY CLINICAL RECORDS. [facility] [employer] [facility]. provides no warranty or guarantee of the accuracy or completeness of information in this document.
--- NOTE | 2024-08-17 21:09 | CT_ITS ---
[address] [address] Patient Name: CUATE SOLER MRN: [id number] date: 1975 Sex: M Assigned Patient Location: ER Current Patient Location: ER Accession/Order Number: [id number] Exam Date: 08/17/2024 21:35 Report Date: 08/17/2024 23:11 At the request of: VIRGINIA CROUCH Procedure: CT abdomen pelvis w con EXAM: CT abdomen pelvis w con HISTORY: poss rectal prolapse COMPARISON: None. TECHNIQUE: Dose reduction techniques were achieved by using automated exposure control and/or adjustment of mA and/or kV according to patient size and/or use of iterative reconstruction technique. CT of the abdomen and pelvis with contrast. FINDINGS: Lung bases are clear. No focal liver lesion. Spleen is normal. Pancreas is normal. Adrenal glands are normal. Cholelithiasis. No gallbladder wall thickening. Nonobstructive stones of the bilateral kidneys. No hydronephrosis. No hydroureter. No ureteral stones. No bladder stones. No focal bladder wall thickening. No colonic dilation. No pericolonic fat stranding. Appendix is normal. There is rectal prolapse. No small bowel dilation. No adjacent mesenteric edema. No inguinal, pelvic or retroperitoneal adenopathy. No acute osseous abnormality. Mild degeneration of the bilateral sacroiliac joints. Dysplastic left hip joint. Severe degeneration of the left hip with full-thickness chondral loss and subchondral sclerosis. Surgical fixation screws of the left proximal femur. Normal alignment of the right hip joint. Mild to moderate disc degeneration at L5-S1. Posterior disc osteophyte complex at L5-S1. No acute osseous abnormality. CT/CT abdomen pelvis w con IMPRESSION: 1. Rectal prolapse. 2. No colonic dilation. No pericolonic fat stranding. No small bowel dilation. 3. Other chronic findings as described. 4. No acute osseous abnormality. Electronically authenticated by: RHEA GALVEZ Date: 08/17/2024 23:11
--- NOTE | 2024-08-17 21:44 | ED_ITS ---
HPI HPI - General Adult General Chief complaint: Urogenital-Male Stated complaint: POSS RECTAL PROLAPSE, HOLDING IT IN Time Seen by Provider: 08/17/24 20:44 Source: patient Mode of arrival: Wheelchair Limitations: no limitations History of Present Illness HPI narrative: 49-year-old male presents to the emergency department for something protruding from his rectum. He states he was constipated and gave himself an enema tonight about 5 PM. It was successful and he had a large amount of stool and feels better in that regard but subsequently he felt something protruding from his rectum. There is been no bleeding. He has had some small external hemorrhoids but never had to have surgery. He has never had any colorectal issues. He does not have chronic constipation. Related Data Allergies Allergy/AdvReac Type Severity Reaction Status Date / Time No Known Drug Allergies Allergy Verified 08/17/24 20:46 Opioid HPI Opioid Management Most Recent Opioid Data: Last Pain Scale 7 08/17/24 21:56 08/17/24 Review of Systems ROS Narrative A ten point review of systems is negative except as noted above. PFSH PFSH Social History Little interest or pleasure in doing things: not at all Feeling down, depressed, or hopeless: not at all Exam Narrative Exam Narrative: Nurses note and vital signs reviewed and patient is not hypoxic. General: The patient appears well and in no apparent distress. Patient is resting comfortably on cart. Skin: Warm, dry, no pallor noted. There is no rash noted. Head: Normocephalic, atraumatic Eye: Normal conjunctiva, no drainage Ears, Nose, Mouth, and Throat: oral mucosa is moist. Nares patent. Cardiovascular: Regular Rate and Rhythm Respiratory: Patient is in no distress, no accessory muscle use, lungs are clear to auscultation, no wheezing, rales or rhonchi Back: non-tender GI: Normal bowel sounds, no tenderness to palpation, no masses appreciated. No rebound, guarding, or rigidity noted. Perianal examination shows tissue protruding externally. There appears to be no concentric rings to suggest pure rectal prolapse. There are 2 parallel linear nonthrombosed areas suggestive of large internal hemorrhoids which are prolapsed. Musculoskeletal: The patient has no evidence of calf tenderness, no pitting edema, symmetrical pulses noted bilaterally Neurological: A&O, normal speech Psychiatric: Cooperative Constitutional Vital Signs, click to edit/add: Last Vital Signs Temp 97.8 F 08/17/24 20:42 Pulse 84 08/17/24 23:43 Resp 18 08/17/24 20:42 BP 184/113 H 08/17/24 20:42 Pulse Ox 93 L 08/17/24 23:43 O2 Del Method Room Air 08/17/24 20:42 Course Vital Signs Vital signs: Vital Signs Temperature 97.8 F 08/17/24 20:42 Pulse Rate 87 08/17/24 20:42 Respiratory Rate 18 08/17/24 20:42 Blood Pressure 184/113 H 08/17/24 20:42 Pulse Oximetry 97 08/17/24 20:42 Oxygen Delivery Method Room Air 08/17/24 20:42 Temperature 97.8 F 08/17/24 20:42 Pulse Rate 84 08/17/24 23:43 Respiratory Rate 18 08/17/24 20:42 Blood Pressure 184/113 H 08/17/24 20:42 Pulse Oximetry 93 L 08/17/24 23:43 Oxygen Delivery Method Room Air 08/17/24 20:42 Medical Decision Making MDM Narrative Medical decision making narrative: The patient presents with rectal prolapse and likely has some internal hemorrhoids as well. I discussed the case with Dr. Crawford and we have agreed that I will attempt reduction. Please see procedure note below. The attempt was successful and the patient will be discharged home and was referred to Dr. Amador, colorectal surgeon. The importance of follow-up was discussed thoroughly. The following procedure was performed by me. The patient was given IV morphine for pain and manual traction on the rectal prolapse after several minutes duration was successful in reducing the prolapse. He tolerated the procedure well and there were no complications. Differential Diagnosis Differential Diagnosis: Rectal prolapse, hemorrhoids Lab Data Lab results reviewed: Yes I reviewed the patient's lab results Labs: Lab Results 08/17/24 Range/Units 21:25 WBC 10.4 (4.0-11.0) 10^3/uL RBC 4.82 (4.70-6.10) 10^6/uL Hgb 15.1 (14.0-18.0) g/dL Hct 44.2 (42.0-54.0) % MCV 91.7 (80.0-94.0) fL MCH 31.3 (25.9-34.0) pg MCHC 34.2 (29.9-35.2) g/dL RDW 12.7 (11.0-15.0) % Plt Count 196 (150-450) 10^3/uL MPV 10.5 (9.5-13.5) fL Seg Neuts % (Manual) 92.0 H (43.0-75.0) Lymphocytes % (Manual) 3.0 L (20.5-60.0) % Monocytes % (Manual) 4.0 (1.7-12.0) % Eosinophils % (Manual) 0.0 L (0.9-7.0) % Basophils % (Manual) 1.0 (0.2-2.0) % Neutrophils # (Manual) 9.56 H (1.4-6.5) 10^3/uL Lymphocytes # (Manual) 0.31 L (1.20-3.80) 10^3/uL Monocytes # (Manual) 0.41 (0.30-0.80) 10^3/uL Eosinophils # (Manual) 0.00 (0.00-0.70) 10^3/uL Basophils # (Manual) 0.10 (0.00-0.10) 10^3/uL Sodium 145 (136-145) mmol/L Potassium 3.7 (3.5-5.1) mmol/L Chloride 107 (98-107) mmol/L Carbon Dioxide 23.3 (21.0-32.0) mmol/L Anion Gap 18.4 BUN 27.0 H (7.0-18.0) mg/dL Creatinine 1.00 (0.70-1.30) mg/dL Est GFR ( Amer) >60 (>=60 mL/min/1.73m^2) Est GFR (Non-Af Amer) >60 (>=60 mL/min/1.73m^2) BUN/Creatinine Ratio 27.0 Glucose 110 H (74-106) mg/dL Calcium 8.4 L (8.5-10.1) mg/dL Imaging Data CT scan - abdomen: Radiologist's impression: ITS Impressions Abdomen/Pelvis CT 08/17/24 21:09 IMPRESSION: 1. Rectal prolapse. 2. No colonic dilation. No pericolonic fat stranding. No small bowel dilation. 3. Other chronic findings as described. 4. No acute osseous abnormality. Electronically authenticated by: RHEA GALVEZ Date: 08/17/2024 23:11 Discharge Plan Discharge Chief Complaint: Urogenital-Male Clinical Impression: Rectal prolapse Patient Disposition: Home, Self-Care Time of Disposition Decision: 00:08 Condition: Good Mode of Transportation: Private Vehicle Print Language: Croatian Instructions: Rectal Prolapse (ED) Additional Instructions: Follow-up with Dr. Papa Holland, colorectal surgeon. [phone]. Address is [address] [place] [address]. [address], [place] [address] Avoid becoming constipated by using Metamucil and Colace every day. Referrals: Collette Randle MD [Primary Care Provider] - 1 week
[2024-08-17 21:51] LABS: Hematocrit 44.2 % (42.0-54.0); Hemoglobin 15.1 g/dL (14.0-18.0); Mean Corpuscular HGB Conc 34.2 g/dL (29.9-35.2); Mean Corpuscular Hemoglobin 31.3 pg (25.9-34.0); Mean Corpuscular Volume 91.7 fL (80.0-94.0); Mean Platelet Volume 10.5 fL (9.5-13.5); Platelet Count 196 10^3/uL (150-450); Red Blood Count 4.82 10^6/uL (4.70-6.10); Red Cell Distribution Width 12.7 % (11.0-15.0); White Blood Count 10.4 10^3/uL (4.0-11.0)
[2024-08-17] MEDS: MORPHINE SULFATE 4 MG/ML VIAL IV ×2 (21:56→23:40)
[2024-08-17 22:03] LABS: Anion Gap 18.4; Calcium 8.4 mg/dL (8.5-10.1); Carbon Dioxide 23.3 mmol/L (21.0-32.0); Chloride 107 mmol/L (98-107); Estimated GFR (African America >60 (>=60 mL/min/1.73m^2); Estimated GFR (Non-African Ame >60 (>=60 mL/min/1.73m^2); Glucose 110 mg/dL (74-106); Potassium 3.7 mmol/L (3.5-5.1); Sodium 145 mmol/L (136-145)
[2024-08-17 22:06] LABS: Lymphocytes Absolute Manual 0.31 10^3/uL (1.20-3.80); Monocytes Absolute Manual 0.41 10^3/uL (0.30-0.80); Segmented Neut Absolute Manual 9.56 10^3/uL (1.4-6.5)
[2024-08-17] MEDS: MORPHINE SULFATE 2 MG/ML SYRINGE IV (23:20)
[2024-08-17 23:43] VITALS: PULSE 84; O2SAT 93
[2024-08-18 00:23] VITALS: BP 128/74; PULSE 86; O2SAT 97
== END 2024-08-18 00:04 | disposition home or self-care (01) ==
PROVIDERS: Emergency Provider Emergency Medicine; PCP Family Medicine
DX: K62.3 Rectal prolapse (principal); K64.8 Other hemorrhoids
CPT/HCPCS: 36415; 74177; 80048; 85007; 85027; 96374; 96376; 99285; J2270; Q9967